=== PATIENT | male | born 1985 | race Caucasian/White ===

== ENCOUNTER 2022-04-29 12:41 | Observation (INO) | payer OTHER, SELFPAY ==
[2022-04-29] VITALS (18 sets, daily range): BP systolic 126–156; BP diastolic 65–95; PULSE 60–81; RESP 13–18; TEMP 36.4–37.2; O2SAT 93–100; BMI 27.0
--- NOTE | 2022-04-29 13:08 | ECG_ITS ---
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 Measurements Intervals [place] Rate: 65 P: 6 MD: 156 QRS: -17 QRSD: 103 T: -3 QT: 359 QTc: 374 Interpretive Statements SINUS RHYTHM POSSIBLE RIGHT VENTRICULAR CONDUCTION DELAY [RSR (QR) IN V1/V2] VOLTAGE CRITERIA FOR LVH [MEETS CRITERIA IN ONE OF: R(aVL), S(V1), R(V5), R(V5/V6)+S(V1)] No previous ECG available for comparison Electronically Signed On 04-29-2022 17:28:36 CDT by Tyshawn Reyes M.D. [email or web address].[employer]/store/OM/[id number]
--- NOTE | 2022-04-29 13:09 | ED_ITS ---
Documented by User: KRISTEN Murdock 04/29/22 16:43 HPI - Abdominal Pain General: Chief Complaint: Abdominal Pain Stated Complaint: abdomal pain and kidney area Time Seen by Provider: 04/29/22 12:50 History of Present Illness: Patient is a 37-year-old male comes to the ED with abdominal pain. Abdominal pain started approximately a week ago. It was more m ild pain at that time. 2 days ago patient says his pain got a lot worse. Abdominal pain is located in the periumbilical and epigastric region and it radiates to his back. He rates pain currently a 9 out of 10 and its constant. Pain does not worsen after eating. Denies any improving or worsening factors. He is able to keep food and fluids down but endorses a decreased appetite. Deniesfever, chills, nausea/vomiting, bladder or bowel symptoms. Associated Symptoms: Denies chills, constipation, diarrhea, dysuria, fever(s), hematochezia, hematuria, nausea and vomiting Review of Systems Const: Denies: fever(s), chills or fatigue Eyes: Denies: change in vision or eye discomfort ENMT: Denies: throat pain, odynophagia, nasal discharge or nasal congestion Card: Denies: chest pain, palpitations, edema, swelling of feet/ankles, dyspnea on exertion or orthopnea Resp: Denies: dyspnea, productive cough or non-productive cough GI: Reports: abdominal pain; Denies: nausea, vomiting, diarrhea, constipation or hematochezia : Denies: flank pain, difficulty urinating, dysuria or hematuria Musc: Denies: neck pain, back pain or extremity swelling Skin/Breast: Denies: rash or new lesions Neuro: Denies: headache(s), numbness in extremities or weakness in extremities PFS ED PFSH: Medical History No pertinent family history Surgical History No pertinent past surgical history Physical Exam Const: COMMON NORMALS: patient oriented x3 and alert GENERAL APPEARANCE: cooperative HENMT: COMMON NORMALS: normocephalic HEAD & SCALP: normocephalic MOUTH: Normal oral and palatal mucosa present THROAT: posterior oropharynx normal and uvula midline Neck/C-Spine: COMMON NORMALS: supple GENERAL: Yes normal visual inspection Resp: COMMON NORMALS: normal respiratory effort, No retractions, No use of accessory muscles and clear to auscultation bilaterally AUSCULTATION: clear to auscultation bilaterally Cardio: COMMON NORMALS: regular rate, regular rhythm, S1 normal heart sound present, S2 normal heart sound present, No gallops present (Cardio), No clicks present (Cardio), No murmurs present (Cardio) and Peripheral pulses 2+ throughout RATE: regular rate RHYTHM: regular rhythm HEART SOUNDS: S1 normal heart sound present and S2 normal heart sound present PERIPHERAL PULSES: Peripheral pulses 2+ throughout GI: COMMON NORMALS: Normal to inspection, nondistended, normoactive bowel sounds present, Soft to palpation and no masses PALPATION: Yes Soft to palpation and Yes Tenderness to palpation present (GI) (Epigastric and periumbilical region tenderness) : COMMON NORMALS: Yes no CVA tenderness BLADDER/KIDNEY EXAM: Yes no CVA tenderness Back/Pelvis: COMMON NORMALS: no CVA tenderness Extremity: COMMON NORMALS: normal to inspection Neuro: COMMON NORMALS: patient oriented x3 SENSORIUM/ORIENTATION: Yes alert GAIT: Yes Normal gait present Skin: GENERAL SKIN EXAM: dry skin Course Consultations: Consultation #1: I contacted Dr. Jacobs and told him about patient case and CT findings of acute appendicitis. He he accepts admission of patient and will be taking them to surgery today. Time: 16:27 Vital Signs: Vital signs: Vital Signs Temperature 98.0 F 04/29/22 13:01 Pulse Rate 71 04/29/22 16:42 Respiratory Rate 16 04/29/22 16:42 Blood Pressure 151/95 04/29/22 16:42 Pulse Oximetry 98 04/29/22 16:42 MDM - Abdominal Pain Medical Decision Making Patient is a 37-year-old male comes to the ED with abdominal pain. Symptoms started approximately 2 days ago and continued to get worse. Vitals are stable. Patient has tenderness of the periumbilical and epigastric region of abdomen. Rest of exam is benign. White blood cell count of 16.[address] of abdomen pelvis showed acute appendicitis with an appendix measuring up to 15 mm in diameter. I contacted Dr. Jacobs and told about patient case and he accepts admission of patient and will be taking him to surgery later today. Patient was started on IV Zosyn here in the ED. Patient understood and agreed with plan. Lab Data I reviewed the patient's lab results. : 04/29/22 13:00 04/29/22 13:00 Labs/Radiology: Radiology Impressions Abdomen/Pelvis CT 04/29/22 14:08 IMPRESSION: 1. Acute appendicitis with numerous phleboliths and marked distention. Appendix measures up to 15 mm in diameter. 2. Appendix extends superiorly and extends between the inferior RIGHT lobe of the liver and the RIGHT kidney. 3. Small amount of free fluid in the pelvis. Laboratory Results WBC 16.7 10^3/uL (4.0-10.0) H 04/29/22 13:00 RBC 5.10 10^6/uL (4.1-5.3) 04/29/22 13:00 Hgb 16.5 g/dL (11.7-16.6) 04/29/22 13:00 Hct 46.4 % (42.0-52.0) 04/29/22 13:00 MCV 91.0 fl (80-94) 04/29/22 13:00 MCH 32.4 pg (28.0-34.0) 04/29/22 13:00 MCHC 35.6 g/dL (30.0-36.0) 04/29/22 13:00 RDW 12.6 % (12.1-15.1) 04/29/22 13:00 Plt Count 235 10^3/cmm (130-400) 04/29/22 13:00 MPV 10.1 fL (7.4-10.4) 04/29/22 13:00 Neut % (Auto) 81.3 % 04/29/22 13:00 Lymph % (Auto) 11.6 % 04/29/22 13:00 [place] % (Auto) 5.8 % 04/29/22 13:00 Eos % (Auto) 0.3 % 04/29/22 13:00 Baso % (Auto) 0.4 % 04/29/22 13:00 Neut # (Auto) 13.56 10^3/uL (1.8-7.7) H 04/29/22 13:00 Lymph # (Auto) 1.9 10^3/uL (0.8-4.8) 04/29/22 13:00 [place] # (Auto) 1.0 10^3/uL (0.2-0.9) H 04/29/22 13:00 Eos # (Auto) 0.1 10^3/uL (0.0-0.8) 04/29/22 13:00 Baso # (Auto) 0.1 10^3/uL (0.0-0.1) 04/29/22 13:00 Nucleated RBC % (auto) 0 % 04/29/22 13:00 Nucleated RBCs # 0.0 /100WBC 04/29/22 13:00 Sodium 140 mmol/L (136-145) 04/29/22 13:00 Potassium 3.9 mmol/L (3.5-5.1) 04/29/22 13:00 Chloride 102 mmol/L (98-107) 04/29/22 13:00 Carbon Dioxide 27 mmol/L (22-29) 04/29/22 13:00 Anion Gap 14.9 (5-19) 04/29/22 13:00 BUN 10 mg/dL (6-20) 04/29/22 13:00 Creatinine 0.9 mg/dL (0.7-1.2) 04/29/22 13:00 GFR Calculation 95.0 mL/min (90-130) 04/29/22 13:00 Glucose 108 mg/dL (65-115) 04/29/22 13:00 Calculated Osmolality 290 mOsm/kg (285-295) 04/29/22 13:00 Calcium 9.3 mg/dL (8.5-10.5) 04/29/22 13:00 Total Bilirubin 0.4 mg/dL (0.15-1.2) 04/29/22 13:00 AST 17 U/L (0-40) 04/29/22 13:00 ALT 17 U/L (0-41) 04/29/22 13:00 Alkaline Phosphatase 82 IU/L (40-130) 04/29/22 13:00 Troponin T Baseline 6 ng/L (0-15) 04/29/22 Unknown Total Protein 7.2 g/dL (6.6-8.7) 04/29/22 13:00 Albumin 4.4 g/dL (3.5-5.2) 04/29/22 13:00 Globulin 2.8 g/dL (1.3-4.6) 04/29/22 13:00 Lipase 16 U/L (13-60) 04/29/22 13:00 Urine Color Yellow (Yellow) 04/29/22 14:16 Urine Appearance Clear (CLEAR) 04/29/22 14:16 Urine pH 8 (5-7) H 04/29/22 14:16 Ur Specific [place] 1.010 (1.005-1.030) 04/29/22 14:16 Urine Protein Neg (Negative) 04/29/22 14:16 Urine Glucose (UA) Norm (Normal) 04/29/22 14:16 Urine Ketones 1+ (Negative) H 04/29/22 14:16 Urine Blood Neg (Negative) 04/29/22 14:16 Urine Nitrate Negative (Negative) 04/29/22 14:16 Urine Bilirubin 1+ (Negative) H 04/29/22 14:16 Prot Sulfosalicylic Acd Negative (Negative) 04/29/22 14:16 Urine Urobilinogen Norm mg/dL (Negative) 04/29/22 14:16 Ur Leukocyte Esterase Negative (Negative) 04/29/22 14:16 EKG Data EKG 1: EKG interpretation date: 04/29/22 Interpretation: Sinus rhythm, no ST segment elevation or depression seen, 65 bpm Discharge Plan Discharge Patient Disposition: Admitted As Inpatient Clinical Impression: Acute appendicitis Qualifiers: Acute appendicitis type: with localized peritonitis Appendicitis gangrene presence: without gangrene Appendicitis perforation presence: without perforation Appendicitis abscess presence: without abscess Qualified Code(s): K35.30 - Acute appendicitis with localized peritonitis, without perforation or gangrene Condition: Stable Sign Out Sign Out Data: Patient Sign Out occurred on 04/29/22 at 16:52. Patient's care was discussed, and care was transferred from to Jose Antonio Hewitt DO. 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 Documented by User: Jose Antonio Hewitt DO 04/29/22 17:01 HPI - Abdominal Pain General: Chief Complaint: Abdominal Pain Stated Complaint: abdomal pain and kidney area Time Seen by Provider: 04/29/22 12:50 [facility] ED PFSH: Medical History No pertinent family history Surgical History No pertinent past surgical history Course Vital Signs: Vital signs: Vital Signs Temperature 98.0 F 04/29/22 13:01 Pulse Rate 71 04/29/22 16:42 Respiratory Rate 16 04/29/22 16:42 Blood Pressure 151/95 04/29/22 16:42 Pulse Oximetry 98 04/29/22 16:42 MDM - Abdominal Pain Medical Decision Making Patient is a 37-year-old male comes to the ED with abdominal pain. Symptoms started approximately 2 days ago and continued to get worse. Vitals are stable. Patient has tenderness of the periumbilical and epigastric region of abdomen. Rest of exam is benign. White blood cell count of 16.[address] of abdomen pelvis showed acute appendicitis with an appendix measuring up to 15 mm in diameter. I contacted Dr. Jacobs and told about patient case and he accepts admission of patient and will be taking him to surgery later today. Patient was started on IV Zosyn here in the ED. Patient understood and agreed with plan. Patient seen and examined by myself. Reviewed labs and imaging and Sanjeev Avila's charting and agree with all the above exam I have the same findings he does. Dr. Jorge is consulted for urgent appendectomy. Lab Data : 04/29/22 13:00 04/29/22 13:00 Labs/Radiology: Radiology Impressions Abdomen/Pelvis CT 04/29/22 14:08 IMPRESSION: 1. Acute appendicitis with numerous phleboliths and marked distention. Appendix measures up to 15 mm in diameter. 2. Appendix extends superiorly and extends between the inferior RIGHT lobe of the liver and the RIGHT kidney. 3. Small amount of free fluid in the pelvis. Laboratory Results WBC 16.7 10^3/uL (4.0-10.0) H 04/29/22 13:00 RBC 5.10 10^6/uL (4.1-5.3) 04/29/22 13:00 Hgb 16.5 g/dL (11.7-16.6) 04/29/22 13:00 Hct 46.4 % (42.0-52.0) 04/29/22 13:00 MCV 91.0 fl (80-94) 04/29/22 13:00 MCH 32.4 pg (28.0-34.0) 04/29/22 13:00 MCHC 35.6 g/dL (30.0-36.0) 04/29/22 13:00 RDW 12.6 % (12.1-15.1) 04/29/22 13:00 Plt Count 235 10^3/cmm (130-400) 04/29/22 13:00 MPV 10.1 fL (7.4-10.4) 04/29/22 13:00 Neut % (Auto) 81.3 % 04/29/22 13:00 Lymph % (Auto) 11.6 % 04/29/22 13:00 [place] % (Auto) 5.8 % 04/29/22 13:00 Eos % (Auto) 0.3 % 04/29/22 13:00 Baso % (Auto) 0.4 % 04/29/22 13:00 Neut # (Auto) 13.56 10^3/uL (1.8-7.7) H 04/29/22 13:00 Lymph # (Auto) 1.9 10^3/uL (0.8-4.8) 04/29/22 13:00 [place] # (Auto) 1.0 10^3/uL (0.2-0.9) H 04/29/22 13:00 Eos # (Auto) 0.1 10^3/uL (0.0-0.8) 04/29/22 13:00 Baso # (Auto) 0.1 10^3/uL (0.0-0.1) 04/29/22 13:00 Nucleated RBC % (auto) 0 % 04/29/22 13:00 Nucleated RBCs # 0.0 /100WBC 04/29/22 13:00 Sodium 140 mmol/L (136-145) 04/29/22 13:00 Potassium 3.9 mmol/L (3.5-5.1) 04/29/22 13:00 Chloride 102 mmol/L (98-107) 04/29/22 13:00 Carbon Dioxide 27 mmol/L (22-29) 04/29/22 13:00 Anion Gap 14.9 (5-19) 04/29/22 13:00 BUN 10 mg/dL (6-20) 04/29/22 13:00 Creatinine 0.9 mg/dL (0.7-1.2) 04/29/22 13:00 GFR Calculation 95.0 mL/min (90-130) 04/29/22 13:00 Glucose 108 mg/dL (65-115) 04/29/22 13:00 Calculated Osmolality 290 mOsm/kg (285-295) 04/29/22 13:00 Calcium 9.3 mg/dL (8.5-10.5) 04/29/22 13:00 Total Bilirubin 0.4 mg/dL (0.15-1.2) 04/29/22 13:00 AST 17 U/L (0-40) 04/29/22 13:00 ALT 17 U/L (0-41) 04/29/22 13:00 Alkaline Phosphatase 82 IU/L (40-130) 04/29/22 13:00 Troponin T Baseline 6 ng/L (0-15) 04/29/22 Unknown Total Protein 7.2 g/dL (6.6-8.7) 04/29/22 13:00 Albumin 4.4 g/dL (3.5-5.2) 04/29/22 13:00 Globulin 2.8 g/dL (1.3-4.6) 04/29/22 13:00 Lipase 16 U/L (13-60) 04/29/22 13:00 Urine Color Yellow (Yellow) 04/29/22 14:16 Urine Appearance Clear (CLEAR) 04/29/22 14:16 Urine pH 8 (5-7) H 04/29/22 14:16 Ur Specific [place] 1.010 (1.005-1.030) 04/29/22 14:16 Urine Protein Neg (Negative) 04/29/22 14:16 Urine Glucose (UA) Norm (Normal) 04/29/22 14:16 Urine Ketones 1+ (Negative) H 04/29/22 14:16 Urine Blood Neg (Negative) 04/29/22 14:16 Urine Nitrate Negative (Negative) 04/29/22 14:16 Urine Bilirubin 1+ (Negative) H 04/29/22 14:16 Prot Sulfosalicylic Acd Negative (Negative) 04/29/22 14:16 Urine Urobilinogen Norm mg/dL (Negative) 04/29/22 14:16 Ur Leukocyte Esterase Negative (Negative) 04/29/22 14:16 Discharge Plan Discharge Patient Disposition: Admitted As Inpatient Clinical Impression: Acute appendicitis Qualifiers: Acute appendicitis type: with localized peritonitis Appendicitis gangrene presence: without gangrene Appendicitis perforation presence: without perforation Appendicitis abscess presence: without abscess Qualified Code(s): K35.30 - Acute appendicitis with localized peritonitis, without perforation or gangrene Condition: Stable Sign Out Sign Out Data: Patient Sign Out occurred on 04/29/22 at 16:52. Patient's care was discussed, and care was transferred from to Jose Antonio Hewitt DO. 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
[2022-04-29] MEDS: ondansetron 2 mg/ML SDV 2 mL 4 MG IVP (13:14)
[2022-04-29] MEDS: morphine 4 mg/mL SDV 1 mL IVP ×2 (13:15→14:10)
[2022-04-29] MEDS: sodium chloride 0.9% 1,000 ML 999 ML IV (13:15)
[2022-04-29 14:01] LABS: Troponin(5th) Baseline 6 ng/L (0-15)
--- NOTE | 2022-04-29 14:08 | CT_ITS ---
WS: [id number] CT ABDOMEN AND PELVIS WITH CONTRAST HISTORY: Periumbilical abdominal pain TECHNIQUE: Imaging performed of the abdomen and pelvis with IV contrast. Single phase imaging of the abdomen. Coronal and sagittal reformats are submitted. All CT scans at [facility] use at [address] one of these dose optimization techniques: automated exposure control; mA and/or kV adjustment per patient size (includes targeted exams where dose is matched to clinical indication); or iterative re construction. IV CONTRAST: Omnipaque 350; 95 mL IV. Oral contrast: No DLP: 1100.33 mGy.cm COMPARISON: None available. Lower thorax: Lung bases are clear. Heart is normal size. No hiatal hernia. Liver/biliary system: Normal size with no intrahepatic dilatation. Gallbladder: Normal. No gallstones or wall thickening. No pericholecystic fluid. Pancreas: Normal size pancreas and pancreatic duct. No adjacent inflammation. Spleen: Normal size spleen. No mass or infarct. Adrenal glands: Normal. Right kidney: Normal. Left kidney: Normal. Aorta: Normal. Lymphadenopathy: None. Free fluid: Small amount of free fluid in the pelvis. GI tract: Dilated blind-ending loop in the RIGHT lower quadrant contains calcifications. This is cons istent with a dilated fluid-filled appendix with adjacent moderate periappendiceal stranding. Appendi x measures 15 mm diameter. Appendicoliths are present within the lumen. These appendicoliths measure about 6 mm. The appendix is superiorly positioned and extends between the inferior most aspect RIGHT lobe of the liver and the kidney. Mild secondary inflammation involving the ascending colon near the hepatic flexure. Abdominal wall: Fat containing umbilical hernia. Pelvis: Small amount of free fluid in the pelvis. Urinary bladder is well distended. Bones: Unremarkable. CT/CT abdomen pelvis w con* [id number] IMPRESSION: 1. Acute appendicitis with numerous phleboliths and marked distention. Appendi x measures up to 15 mm in diameter. 2. Appendix extends superiorly and extends between the inferior RIGHT lobe of the liver and the RIGHT kidney. 3. Small amount of free fluid in the pelvis.
[2022-04-29 14:33] LABS: Add Urine Microscopic? NO; Charge for UA Resulting for Rev
[2022-04-29 14:37] LABS: Bilirubin Urine 1+ (Negative); Blood Urine Neg (Negative); Glucose Urine UA Norm (Normal); Ketones Urine 1+ (Negative); Leukocyte Esterase Urine Negative (Negative); Nitrate Urine Negative (Negative); Protein Urine Neg (Negative); Sulfosalicylic Acid Urine Negative (Negative); Urine Appearance Clear (CLEAR); Urine Color Yellow (Yellow); Urobilinogen Urine Norm (Negative); pH Urine 8 (5-7)
[2022-04-29] MEDS: iohexol 350 mg/mL 100 mL Btl IV (15:08)
--- NOTE | 2022-04-29 15:08 | ECG_ITS ---
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 Measurements Intervals [place] Rate: 72 P: 71 AR: 168 QRS: 78 QRSD: 100 T: 64 QT: 327 QTc: 360 Interpretive Statements SINUS RHYTHM Compared to ECG 04/29/2022 13:27:53 Left ventricular hypertrophy no longer present Electronically Signed On 04-30-2022 23:44:46 CDT by Esdras Farfan M.D. [email or web address] medical groupGame [facility] hospitalUplike/store/OM/[id number]/[id number]
[2022-04-29 15:21] LABS: Basophils # 0.1 10^3/uL (0.0-0.1); Basophils % 0.4 %; Eosinophils # 0.1 10^3/uL (0.0-0.8); Eosinophils % 0.3 %; Hematocrit 46.4 % (42.0-52.0); Hemoglobin 16.5 g/dL (11.7-16.6); Lymphocytes # 1.9 10^3/uL (0.8-4.8); Lymphocytes % 11.6 %; Mean Corpuscular HGB Conc 35.6 g/dL (30.0-36.0); Mean Corpuscular Hemoglobin 32.4 pg (28.0-34.0); Mean Platelet Volume 10.1 fL (7.4-10.4); Monocytes % 5.8 %; Neutrophils # 13.56 10^3/uL (1.8-7.7); Neutrophils % 81.3 %; Nucleated Red Blood Cells % 0 %; Platelet Count 235 10^3/cmm (130-400); Red Cell Distribution Width 12.6 % (12.1-15.1); White Blood Count 16.7 10^3/uL (4.0-10.0)
[2022-04-29 15:30] LABS: Alanine Aminotransferase 17 U/L (0-41); Albumin Level 4.4 g/dL (3.5-5.2); Alkaline Phosphatase 82 IU/L (40-130); Anion Gap 14.9 (5-19); Aspartate Amino Transferase 17 U/L (0-40); Blood Urea Nitrogen 10 mg/dL (6-20); Calcium 9.3 mg/dL (8.5-10.5); Carbon Dioxide 27 mmol/L (22-29); Chloride 102 mmol/L (98-107); Globulin 2.8 g/dL (1.3-4.6); Glucose 108 mg/dL (65-115); Lipase 16 U/L (13-60); Osmolality Calculated 290 mOsm/kg (285-295); Potassium 3.9 mmol/L (3.5-5.1); Sodium 140 mmol/L (136-145); Total Bilirubin 0.4 mg/dL (0.15-1.2); Total Protein 7.2 g/dL (6.6-8.7)
[2022-04-29] MEDS: HYDROmorphone 1 mg/mL INJ 1 mL IVP ×2 (15:41→16:38)
[2022-04-29] MEDS: piperacillin-tazobactam 3.375 GM in sodium chloride 0.9% (plus) 50 ML IV (16:41)
--- NOTE | 2022-04-29 17:28 | P.HP_ITS ---
Providers/Chief Complaint Admitting Physician: Kevin Jacobs MD Primary Care Provider: Devante Miramontes Chief Complaint: abdomal pain in kidney area History of Present Illness Mr. Mark Hobbs is a pleasant 37 year old male otherwise healthy presents to the ED with abdominal pain. Reports that the pain started about a week ago. Over the last couple of days the pain got worse mostly located in the periumbilical and epigastric region and radiates to the back. Nothing seems to make the pain better or worse. No evidence of other constitutional symptoms. Patient reports that the pain has been like a horseshoe and did experience some constipation today. He denies any history of similar pain in the past and he did develop some chills today Further work-up in the ED was done that showed leukocytosis of 16.7 CT of the abdomen pelvis was done and showed; 1.? Acute appendicitis with numerous phleboliths and marked distention. Appendix measures up to 15 mm in diameter. 2.? Appendix extends superiorly and extends between the inferior RIGHT lobe of the liver and the RIGHT kidney. 3.? Small amount of free fluid in the pelvis. ? General surgery was consulted for further evaluation and management. Review of Systems General: Reports: 10 or more systems reviewed and unremarkable except in HPI and below Medications/Allergies Home Medications Medication Instructions Recorded Confirmed Last Taken Type esomeprazole magnesium 40 mg 40 mg PO DAILY #30 cap 04/28/22 04/29/22 04/29/22 07:30 Rx capsule,delayed release (Nexium) Allergies Allergy/AdvReac Type Severity Reaction Status Date / Time No Known Allergies Allergy Verified 04/29/22 17:30 PFSH Acute PFSH: Medical History No pertinent family history Surgical History No pertinent past surgical history Vitals/I&O/Wt Last Vital Signs Temp 98.0 F 04/29/22 13:01 Pulse 71 04/29/22 16:42 Resp 16 04/29/22 16:42 BP 151/95 04/29/22 16:42 Pulse Ox 98 04/29/22 16:42 Weight last 48 hrs Weight 205 lb Physical Exam Const: COMMON NORMALS: no acute distress and patient oriented x3 GENERAL APPEARANCE: cooperative ORIENTATION/CONSCIOUSNESS: Yes awake, Yes oriented to person, Yes oriented to place and Yes oriented to time HENMT: COMMON NORMALS: normocephalic HEAD & SCALP: normocephalic Eye: COMMON NORMALS: Equal, round and reactive pupils present and no scleral icterus PUPIL: Yes Equal, round and reactive pupils present Lymph: LYMPHATIC: no lymphadenopathy noted Chest: COMMONS NORMALS: normal inspection of the chest Resp: COMMON NORMALS: normal respiratory effort and clear to auscultation bilaterally AUSCULTATION: clear to auscultation bilaterally Cardio: COMMON NORMALS: S1 normal heart sound present and S2 normal heart sound present; negative for No murmurs present (Cardio) HEART SOUNDS: S1 normal heart sound present and S2 normal heart sound present GI: COMMON NORMALS: Soft to palpation; negative for No hepatosplenomegaly present INSPECTION: Yes normal to inspection PALPATION: Yes Soft to palpation, No Firmness to palpation present (GI), Yes Tenderness to palpation present (GI) (Right lumbar area maximal tenderness and guarding), No Guarding due to palpation present (GI), No Rigid due to palpation and No No hepatosplenomegaly present Neuro: COMMON NORMALS: patient oriented x3 SENSORIUM/ORIENTATION: Yes oriented to person, Yes oriented to place and Yes oriented to time Psych: COMMON NORMALS: mental status grossly normal Skin: COMMON NORMALS: no rashes or lesions noted GENERAL SKIN EXAM: no rashes or lesions noted Data : 04/29/22 13:00 04/29/22 13:00 A&P Assessment and plan (1) Acute appendicitis: After thorough history physical examination and reviewing the chart and images with my personal interpretion showing that the appendix is a subhepatic in position. I counseled the patient for laparoscopic appendectomy possible open. Indications, risks, benefits and alternatives were all discussed with the patient and did agree to proceed. Rationale was carefully and clearly discussed with the patient.Appropriate inf ormed consent have been reviewed and signed Status: Acute Qualifiers: Acute appendicitis type: with localized peritonitis Appendicitis abscess presence: without abscess Appendicitis gangrene presence: without gangrene Appendicitis perforation presence: without perforation Qualified Code(s): K35.30 - Acute appendicitis with localized peritonitis, without perforation or gangrene Attestations Medical Necessity Statement*: Observation for perioperative care Coding Level of Care Code Acute [employer] Attendant for [facility] Fw Diagnoses Acute appendicitis K35.30 Acute appendicitis type: with localized peritonitis Appendicitis abscess presence: without abscess Appendicitis gangrene presence: without gangrene Appendicitis perforation presence: without perforation
--- NOTE | 2022-04-29 18:22 | ANES.PREANE2 ---
Pre-Anesthetic Assessment Height/Weight: Height 1.85 m Weight 92.986 kg Temp Pulse Resp BP Pulse Ox 99.0 F 73 16 141/85 95 04/29/22 18:19 04/29/22 18:19 04/29/22 18:19 04/29/22 18:19 04/29/22 18:19 Preop Diagnosis: Acute appendicitis Operation Date: 04/29/22 18:00 Proposed Procedures p Laparoscopic Appendectomy(Not Applicable) - Kevin Jacobs MD Familial anesthetic complications: none Was Beta Shanda taken within 24 hours: N/A Was Clonidine taken within 24 hours: N/A Social Alcohol (daily beer) and Tobacco Exam alert, oriented x 3 and regular rate & rhythm Airway Submandibular: within normal limits Cervical ROM: within normal limits Mallampati: Class II Dentition: full Pulmonary Chronic Obstructive Pulmonary Disease GI Gastroesophageal Reflux Disease Anesthetic Plan ASA status: 2E Anesthesia: General (RSI) Medications/Allergies Home Medications Medication Instructions Recorded Confirmed Last Taken Type esomeprazole magnesium 40 mg 40 mg PO DAILY #30 cap 04/28/22 04/29/22 04/29/22 07:30 Rx capsule,delayed release (Nexium) Allergies Allergy/AdvReac Type Severity Reaction Status Date / Time No Known Allergies Allergy Verified 04/29/22 17:30 [facility] Anesthesia Medical History No pertinent family history Surgical History No pertinent past surgical history Data Anesthesia : 04/29/22 13:00 04/29/22 13:00 Short CBC 04/29/22 Range/Units 13:00 WBC 16.7 H (4.0-10.0) 10^3/uL Hgb 16.5 (11.7-16.6) g/dL Hct 46.4 (42.0-52.0) % MCV 91.0 (80-94) fl Plt Count 235 (130-400) 10^3/cmm Neut % (Auto) 81.3 % Neut # (Auto) 13.56 H (1.8-7.7) 10^3/uL BMP 04/29/22 13:00 Sodium 140 Potassium 3.9 Chloride 102 Carbon Dioxide 27 BUN 10 Creatinine 0.9 Glucose 108 Calcium 9.3 Cardiac Enzymes 04/29/22 Range/Units Unknown Troponin T Baseline 6 (0-15) ng/L Liver Function 04/29/22 Range/Units 13:00 Total Bilirubin 0.4 (0.15-1.2) mg/dL AST 17 (0-40) U/L ALT 17 (0-41) U/L Alkaline Phosphatase 82 (40-130) IU/L Albumin 4.4 (3.5-5.2) g/dL Urine 04/29/22 Range/Units 14:16 Urine Color Yellow (Yellow) Urine Appearance Clear (CLEAR) Urine pH 8 H (5-7) Ur Specific [place] 1.010 (1.005-1.030) Urine Protein Neg (Negative) Urine Glucose (UA) Norm (Normal) Urine Ketones 1+ H (Negative) Urine Nitrate Negative (Negative) Urine Bilirubin 1+ H (Negative) Ur Leukocyte Esterase Negative (Negative) Cardiac Studies: No Data to Display
[2022-04-29] MEDS: sodium chloride 0.9% 1,000 ML 30 ML IV (18:31)
[2022-04-29] MEDS: fentaNYL 50 mcg/mL INJ 2mL 100 MCG IVP (18:39)
[2022-04-29 18:56] LABS: Troponin 5 2HR Delta 0 ABS# (0-10)
[2022-04-29] MEDS: acetaminophen 1,000 MG/100 ML PIGGYBACK 400 MG IV (19:05)
[2022-04-29] MEDS: lidocaine 2% INJ 20 mL INJECTION (20:07)
--- NOTE | 2022-04-29 20:51 | PM.OP ---
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 prep and drape of the abdomen was done under the usual sterile technique. Started by longitudinal skin incision supraumbilical using a Hernandez trocar technique safe entry to the abdominal cavity was achieved verified by using 10 mm zero degree laparoscopy, switched to a 30? scope under direct visualization a suprapubic 5 mm trocar was inserted followed by another 5 mm trocar inserted in the left lower quadrant, I was able to position the patient in a reverseT Garcia and left side down, dissection of the subhepatic prececal acutely inflamed appendix there was some adhesions towards the lateral wall and the underlying Gerota's fascia, surrounded by reactive fluid due to the inflammation. Dissection was carried on meticulously using LigaSure device to control the mesoappendix.It was noticed that the appendix was being inflamed and distended and during dissection there was inadvertent liquidy stool extruding from the appendix but with minimal contamination. Adhesions were then taken down by sharp and blunt dissection, attention was deviated to the healthy base of the appendix where I had to switch the camera to 5 mm 30? scope got introduced through the left lower quadrant and through the Hernandez trocar under direct visualization a GI stapler 45 mm blue load x2 was applied at the healthy part of the base of the appendix And part of the cecum, and, the appendix was then retrieved in an Endo Catch bag, final survey was done of the abdomen and pelvis , irrigation with warm saline, and suction was obtained. Multiple 5 mm clips were applied onto the mesoappendix as well as the appendectomy staple line. Final look laparoscopy was done showing no other abnormalities or injuries, all trocars were taken out under direct visualization after the supraumblical trocar site was closed by #1 PDS sutures under direct vision using fascial closure device ,followed by skin closure using skin joyce of all trocar site incisions. infiltration of local lidocaine 2% was done to all incision sites.Dry dressing was applied. Count was completed at the end of the procedure for [place],sponges and instruments Patient tolerated the procedure well and was transferred to the recovery area after extubation. I was present for the whole entire procedure
[2022-04-29] MEDS: sodium chloride 0.9% 1,000 ML 100 ML IV (21:47)
[2022-04-29] MEDS: HYDROcodone-acetaminophen 5-325 mg Tablet 1 TAB PO (22:08)
[2022-04-29] MEDS: famotidine 20 mg/2 mL INJ IVP (22:20)
[2022-04-30] VITALS (10 sets, daily range): BP systolic 104–135; BP diastolic 63–78; PULSE 71–97; RESP 13–20; TEMP 36.5–37.3; O2SAT 92–97
[2022-04-30] MEDS: piperacillin-tazobactam 3.375 GM in sodium chloride 0.9% (plus) 50 ML IV ×3 (01:25→17:29)
[2022-04-30] MEDS: morphine 4 mg/mL SDV 1 mL 2 MG IVP ×2 (02:55→14:49)
[2022-04-30 03:49] LABS: Basophils % 0.2 %; Hematocrit 41.6 % (42.0-52.0); Hemoglobin 14.5 g/dL (11.7-16.6); Lymphocytes # 0.9 10^3/uL (0.8-4.8); Lymphocytes % 5.5 %; Mean Corpuscular HGB Conc 34.9 g/dL (30.0-36.0); Mean Corpuscular Hemoglobin 31.7 pg (28.0-34.0); Mean Platelet Volume 9.4 fL (7.4-10.4); Monocytes # 0.9 10^3/uL (0.2-0.9); Monocytes % 5.7 %; Neutrophils # 13.85 10^3/uL (1.8-7.7); Neutrophils % 88.2 %; Nucleated Red Blood Cells % 0 %; Platelet Count 178 10^3/cmm (130-400); Red Blood Count 4.57 10^6/uL (4.1-5.3); Red Cell Distribution Width 12.6 % (12.1-15.1); White Blood Count 15.7 10^3/uL (4.0-10.0)
[2022-04-30 04:12] LABS: Anion Gap 13.2 (5-19); Blood Urea Nitrogen 8 mg/dL (6-20); Calcium 8.8 mg/dL (8.5-10.5); Carbon Dioxide 26 mmol/L (22-29); Chloride 100 mmol/L (98-107); Glucose 146 mg/dL (65-115); Osmolality Calculated 281 mOsm/kg (285-295); Potassium 4.2 mmol/L (3.5-5.1); Sodium 135 mmol/L (136-145)
[2022-04-30] MEDS: HYDROcodone-acetaminophen 5-325 mg Tablet 1 TAB PO ×3 (05:11→20:06)
[2022-04-30] MEDS: sodium chloride 0.9% 1,000 ML 100 ML IV ×2 (07:35→19:48)
--- NOTE | 2022-04-30 09:03 | ANE.PACU2 ---
Inpatient post-anesthesia follow up: Airway intact: Yes Vital signs: Temperature 97.7 F Pulse Rate 82 Respiratory Rate 16 Blood Pressure 110/74 Pulse Oximetry 92 Oxygen Delivery Me thod Room Air Oxygen Flow Rate 8 Fraction of Inspir ed Oxygen Hydration adequate: Yes Nausea and vomiting: No Pain level: 3 Mental status: Baseline
[2022-04-30] MEDS: famotidine 20 mg/2 mL INJ IVP ×2 (09:06→20:54)
--- NOTE | 2022-04-30 11:13 | P.PN_ITS ---
Subjective Subjective: Patient overall feels better, tolerating p.o. intake and passed little gas. Trending down of WBC count 15.7. Adequate urine output Medications: Reviewed: Yes Vitals/I&O/Wt Last Vital Signs Temp 97.7 F 04/30/22 07:49 Pulse 82 04/30/22 08:00 Resp 16 04/30/22 08:00 BP 110/74 04/30/22 08:00 Pulse Ox 92 04/30/22 08:00 04/29/22 04/30/22 04/30/22 22:59 06:59 14:59 Intake Total 1150 / 1150 980 / 2130 980 / 980 Output Total 1999 1675 / 1675 Balance 1130 / 1130 -1020 / 110 -695 / -695 Weight last 48 hrs Weight 205 lb Weight 205 lb Physical Exam Narrative: Patient is conscious alert oriented X3 No apparent distress BMI 27 Head and neck examination PERRLA no masses no cervical lymphadenopathy no jaundice Abdomen nontender except at the incision site nondistended soft no organomegaly guarding or rigidity/no signs of peritonitis Extremities no cyanosis no clubbing no edema Data : 04/30/22 03:13 04/30/22 03:13 A&P Assessment and plan (1) Acute appendicitis: Assessment 37 years old gent s/post laparoscopic appendectomy 04/29/2022 Plan Advance to full liquid diet Continue Zosyn IV antibiotic Encourage ambulation Assurance and education All questions have been answered and all concerns have been addressed to patient's satisfaction. 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
--- NOTE | 2022-04-30 17:49 | PC.NURSE ---
Dr. Jacobs stated patients lovenox can be given in the arm due to appy surgery.
[2022-04-30] MEDS: psyllium powder Pkt 1 PACKET PO (20:06)
[2022-05-01] MEDS: piperacillin-tazobactam 3.375 GM in sodium chloride 0.9% (plus) 50 ML IV ×3 (01:10→16:54)
[2022-05-01] MEDS: HYDROcodone-acetaminophen 5-325 mg Tablet 1 TAB PO ×2 (02:02→09:04)
[2022-05-01 02:55] LABS: Basophils % 0.3 %; Eosinophils % 0.3 %; Hemoglobin 13.9 g/dL (11.7-16.6); Lymphocytes # 1.6 10^3/uL (0.8-4.8); Lymphocytes % 13.5 %; Mean Corpuscular HGB Conc 35.6 g/dL (30.0-36.0); Mean Corpuscular Hemoglobin 32.3 pg (28.0-34.0); Mean Corpuscular Volume 90.5 fl (80-94); Mean Platelet Volume 9.5 fL (7.4-10.4); Monocytes # 0.9 10^3/uL (0.2-0.9); Monocytes % 7.6 %; Neutrophils # 9.33 10^3/uL (1.8-7.7); Neutrophils % 77.7 %; Nucleated Red Blood Cells % 0 %; Platelet Count 173 10^3/cmm (130-400); Red Blood Count 4.31 10^6/uL (4.1-5.3); Red Cell Distribution Width 12.4 % (12.1-15.1)
[2022-05-01 03:18] LABS: Anion Gap 12.8 (5-19); Blood Urea Nitrogen 8 mg/dL (6-20); Calcium 8.7 mg/dL (8.5-10.5); Carbon Dioxide 26 mmol/L (22-29); Chloride 99 mmol/L (98-107); Glucose 103 mg/dL (65-115); Osmolality Calculated 277 mOsm/kg (285-295); Potassium 3.8 mmol/L (3.5-5.1); Sodium 134 mmol/L (136-145)
[2022-05-01] MEDS: sodium chloride 0.9% 1,000 ML 100 ML IV ×2 (05:13→16:53)
--- NOTE | 2022-05-01 06:15 | PC.NURSE ---
Pt has been seen ambulating the halls at least 4 times tonight for a total of 900ft.
[2022-05-01] MEDS: magnesium citrate Btl 296 mL 150 ML PO ×2 (06:45→14:08)
[2022-05-01 08:33] VITALS: BP 124/75; PULSE 84; RESP 14; TEMP 36.6; O2SAT 95
[2022-05-01] MEDS: famotidine 20 mg/2 mL INJ IVP ×2 (08:43→21:46)
[2022-05-01] MEDS: psyllium powder Pkt 1 PACKET PO (08:43)
[2022-05-01 16:54] VITALS: RESP 18; O2SAT 98
[2022-05-01] MEDS: morphine 4 mg/mL SDV 1 mL 2 MG IVP ×2 (16:54→19:36)
--- NOTE | 2022-05-01 17:05 | PC.NURSE ---
tried suppository, too much pain. came back out
--- NOTE | 2022-05-01 18:21 | PM.PN ---
Subjective Subjective: Patient overall feels little bit bloated and he did pass gas yesterday only 1 time, trending down leukocytosis, adequate urine output, tolerating some clear liquid diet Vitals/I&O/Wt Last Vital Signs Temp 98 F 05/01/22 08:33 Pulse 84 05/01/22 08:33 Resp 18 05/01/22 16:54 BP 124/75 05/01/22 08:33 Pulse Ox 98 05/01/22 16:54 05/01/22 05/01/22 05/01/22 06:59 14:59 22:59 Intake Total 1360 / 3800 1000 / 1000 Output Total 0 / 2125 Balance 1360 / 1675 1000 / 1000 Weight last 48 hrs Weight 205 lb Physical Exam Narrative: Patient is conscious alert oriented X3 No apparent distress BMI 27 Head and neck examination PERRLA no masses no cervical lymphadenopathy no jaundice Abdomen nontender except at the incision site nondistended soft no organomegaly guarding or rigidity/no signs of peritonitis. Skin joyce in place, visions clean dry and intact Extremities no cyanosis no clubbing no edema Data : 05/01/22 02:20 05/01/22 02:20 A&P Assessment and plan (1) Acute appendicitis: Assessment 37 years old gent s/post laparoscopic appendectomy 04/29/2022 Plan Advance to full liquid diet slowly Continue Zosyn IV antibiotic Metamucil twice daily Encourage ambulation Assurance and education All questions have been answered and all concerns have been addressed to patient's satisfaction. 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
[2022-05-01 19:36] VITALS: RESP 20
[2022-05-01] MEDS: fluticasone nasal spray 16gm Btl 1 SPRAY NASAL (23:08)
[2022-05-02] MEDS: piperacillin-tazobactam 3.375 GM in sodium chloride 0.9% (plus) 50 ML IV ×3 (00:49→16:15)
[2022-05-02 03:06] LABS: Basophils % 0.3 %; Eosinophils % 0.3 %; Hematocrit 39.1 % (42.0-52.0); Hemoglobin 13.9 g/dL (11.7-16.6); Lymphocytes # 1.1 10^3/uL (0.8-4.8); Lymphocytes % 9.5 %; Mean Corpuscular HGB Conc 35.5 g/dL (30.0-36.0); Mean Corpuscular Hemoglobin 31.8 pg (28.0-34.0); Mean Corpuscular Volume 89.5 fl (80-94); Mean Platelet Volume 9.5 fL (7.4-10.4); Monocytes # 0.9 10^3/uL (0.2-0.9); Neutrophils # 9.47 10^3/uL (1.8-7.7); Neutrophils % 81.3 %; Nucleated Red Blood Cells % 0 %; Platelet Count 193 10^3/cmm (130-400); Red Blood Count 4.37 10^6/uL (4.1-5.3); Red Cell Distribution Width 12.2 % (12.1-15.1); White Blood Count 11.6 10^3/uL (4.0-10.0)
[2022-05-02 03:31] LABS: Anion Gap 10.7 (5-19); Blood Urea Nitrogen 11 mg/dL (6-20); Calcium 8.6 mg/dL (8.5-10.5); Carbon Dioxide 31 mmol/L (22-29); Chloride 96 mmol/L (98-107); Creatinine Clr Calc Pharmacy 152.2369; Glomerular Filtration Rate 108.8 mL/min (90-130); Glucose 119 mg/dL (65-115); Osmolality Calculated 279 mOsm/kg (285-295); Potassium 3.7 mmol/L (3.5-5.1); Sodium 134 mmol/L (136-145)
[2022-05-02] MEDS: sodium chloride 0.9% 1,000 ML 100 ML IV ×2 (03:38→12:05)
[2022-05-02 08:00] VITALS: BP 134/75; PULSE 78; RESP 16; TEMP 36.7; O2SAT 96
[2022-05-02] MEDS: metoclopramide 5 mg/mL SDV 2 mL 10 MG IVP ×2 (08:01→16:10)
[2022-05-02] MEDS: psyllium powder Pkt 1 PACKET PO ×2 (08:01→17:06)
[2022-05-02] MEDS: famotidine 20 mg/2 mL INJ IVP ×2 (08:01→21:08)
[2022-05-02] MEDS: fluticasone nasal spray 16gm Btl 1 SPRAY NASAL (08:02)
[2022-05-02 11:39] VITALS: BP 117/78; PULSE 77; RESP 16; TEMP 36.6; O2SAT 93
[2022-05-02 15:28] VITALS: BP 147/88; PULSE 86; RESP 15; TEMP 36.8; O2SAT 97
--- NOTE | 2022-05-02 17:12 | P.PN_ITS ---
Subjective Subjective: Patient overall feels bloated and is not passing a lot of gas. Continues to have adequate urine output and stable vital signs. Trending down of leukocytosis. Medications: Reviewed: Yes Vitals/I&O/Wt Last Vital Signs Temp 98.2 F 05/02/22 15:28 Pulse 86 05/02/22 15:28 Resp 15 05/02/22 15:28 BP 147/88 05/02/22 15:28 Pulse Ox 97 05/02/22 15:28 05/02/22 05/02/22 05/02/22 06:59 14:59 22:59 Intake Total 1490 / 2960 1015 / 1015 200 / 1215 Output Total 100 / 200 300 / 300 300 / 600 Balance 1390 / 2760 715 / 715 -100 / 615 Physical Exam Narrative: Patient is conscious alert oriented X3 No apparent distress BMI 27 Head and neck examination PERRLA no masses no cervical lymphadenopathy no jaundice Abdomen nontender except at the incision site mild distended soft no organomegaly guarding or rigidity/no signs of peritonitis. Skin joyce in place, visions clean dry and intact Extremities no cyanosis no clubbing no edema Data : 05/02/22 02:35 05/02/22 02:35 A&P Assessment and plan (1) Acute appendicitis: Assessment 37 years old gent s/post laparoscopic appendectomy 04/29/2022 Plan Will go back to clear liquid Continue Zosyn IV antibiotic Metamucil twice daily We will switch fluids to D5 one half normal normal saline +20 KCl Likely the patient will need 1 more night in the hospital as an in patient admission status instead of observation for awaiting bowel function Encourage ambulation We will be checking out to Dr. Barrientos as he will be taking over the weekend regarding patient's care Assurance and education All questions have been answered and all concerns have been addressed to patient's satisfaction. 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
[2022-05-02] MEDS: D5-NS 0.45% + KCL 20 mEq 20 MEQ/1,000 ML BAG 75 MEQ IV (17:26)
--- NOTE | 2022-05-02 17:32 | PC.NURSE ---
Patient AAOx4, VSS, OOBTC and ambulating in halls frequently. Patient hardly tolerating diet however is passing flatus now. Patients abdomen remains distended and discomfort/pain. Refusing pain medications d/t abdominal pain and discomfort and fear of further constipation. Patient voicing wanting to go home and wait for bowels function to return. Patient educated on plan of care. Room clean and clutter free with call light in reach. No safety events this shift, will report to oncoming nurse at shift change at bedside.
[2022-05-02 21:20] VITALS: BP 138/86; PULSE 82; RESP 18; TEMP 37.1; O2SAT 96
[2022-05-02] MEDS: simethicone 80 mg Chew PO (22:36)
[2022-05-03 00:15] VITALS: BP 137/81; PULSE 77; RESP 18; TEMP 36.9; O2SAT 96
[2022-05-03] MEDS: metoclopramide 5 mg/mL SDV 2 mL 10 MG IVP (00:40)
[2022-05-03] MEDS: piperacillin-tazobactam 3.375 GM in sodium chloride 0.9% (plus) 50 ML IV (01:07)
[2022-05-03 04:16] VITALS: BP 118/71; PULSE 84; RESP 18; TEMP 36.6; O2SAT 94
[2022-05-03] MEDS: simethicone 80 mg Chew PO (05:20)
[2022-05-03 07:52] VITALS: BP 137/84; PULSE 82; RESP 18; TEMP 36.7; O2SAT 98
[2022-05-03] MEDS: psyllium powder Pkt 1 PACKET PO (09:05)
[2022-05-03] MEDS: famotidine 20 mg/2 mL INJ IVP (09:06)
--- NOTE | 2022-05-03 09:13 | PM.DCS ---
Discharge Providers Date of Admission: 04/29/22 18:17 Date of Discharge: May 03, 2022 Attending Provider at Admission: Kevin Jacobs MD Attending Provider at Discharge: Kevin Jacobs MD Primary Care Provider: eDvante Miramontes Diagnoses at Discharge Discharge Diagnosis (1) Acute appendicitis: Status: Acute Qualifiers: Acute appendicitis type: with localized peritonitis Appendicitis abscess presence: without abscess Appendicitis gangrene presence: without gangrene Appendicitis perforation presence: without perforation Qualified Code(s): K35.30 - Acute appendicitis with localized peritonitis, without perforation or gangrene Reason for Visit Reason for Visit: abdomal pain in kidney area Brief History: Acute appendicitis Hospital Course Hospital Course This is a very pleasant 37-year-old gentleman who came in with abdominal pain. He was diagnosed with acute appendicitis and underwent a laparoscopic appendectomy. He was tolerating a diet and his pain was controlled upon discharge Physical Exam Narrative: General : Patient is well developed , no acute distress, oriented x3 Head : Normal cephalic, a-traumatic. Ears : Pinnae and external canal are normal. Hearing is normal. Eyes : PERRLA, Sclera and injection are normal. No conjunctival discharge. Nose : Mucous membranes are without erythema. Throat : buccal mucosa is normal, gums are without significant recession or hypertrophy. Lungs : Equal chest rise bilaterally, no use of accessory muscles, trachea is midline. Cor : Rate and rhythm are normal. Abdomen : Soft, mild distention, appropriately tender to palpation, no g/r/m Incisions intact without erythema or exudate Extremities : No edema, no cyanosis or clubbing, dorsalis pedis pulses are present bilaterally, non-tender to palpation of calves. Upper extremities are normal bilaterally. Back : non-tender to palpation, no CVA tenderness. Neuro : CN II - XII intact, Upper and lower extremities have equal and full strength Discharge Data Studies Completed and Pending Completed Studies During Hospitalization Category Date Time Status CT abdomen pelvis w con* [id number] Urgent Cat Scan 04/29/22 14:08 Completed Pathology: Surgical [PTH] Routine Pth 04/29/22 20:52 Completed Pending at discharge Category Date Time Status ES surgery / GI images Routine Exams 04/29/22 18:33 Taken Radiology Impressions Abdomen/Pelvis CT 04/29/22 14:08 IMPRESSION: 1. Acute appendicitis with numerous phleboliths and marked distention. Appendix measures up to 15 mm in diameter. 2. Appendix extends superiorly and extends between the inferior RIGHT lobe of the liver and the RIGHT kidney. 3. Small amount of free fluid in the pelvis. Laboratory Results WBC 11.6 10^3/uL (4.0-10.0) H 05/02/22 02:35 RBC 4.37 10^6/uL (4.1-5.3) 05/02/22 02:35 Hgb 13.9 g/dL (11.7-16.6) 05/02/22 02:35 Hct 39.1 % (42.0-52.0) L 05/02/22 02:35 MCV 89.5 fl (80-94) 05/02/22 02:35 MCH 31.8 pg (28.0-34.0) 05/02/22 02:35 MCHC 35.5 g/dL (30.0-36.0) 05/02/22 02:35 RDW 12.2 % (12.1-15.1) 05/02/22 02:35 Plt Count 193 10^3/cmm (130-400) 05/02/22 02:35 MPV 9.5 fL (7.4-10.4) 05/02/22 02:35 Neut % (Auto) 81.3 % 05/02/22 02:35 Lymph % (Auto) 9.5 % 05/02/22 02:35 [place] % (Auto) 8.0 % 05/02/22 02:35 Eos % (Auto) 0.3 % 05/02/22 02:35 Baso % (Auto) 0.3 % 05/02/22 02:35 Neut # (Auto) 9.47 10^3/uL (1.8-7.7) H 05/02/22 02:35 Lymph # (Auto) 1.1 10^3/uL (0.8-4.8) 05/02/22 02:35 [place] # (Auto) 0.9 10^3/uL (0.2-0.9) 05/02/22 02:35 Eos # (Auto) 0.0 10^3/uL (0.0-0.8) 05/02/22 02:35 Baso # (Auto) 0.0 10^3/uL (0.0-0.1) 05/02/22 02:35 Nucleated RBC % (auto) 0 % 05/02/22 02:35 Nucleated RBCs # 0.0 /100WBC 05/02/22 02:35 Sodium 134 mmol/L (136-145) L 05/02/22 02:35 Potassium 3.7 mmol/L (3.5-5.1) 05/02/22 02:35 Chloride 96 mmol/L (98-107) L 05/02/22 02:35 Carbon Dioxide 31 mmol/L (22-29) H 05/02/22 02:35 Anion Gap 10.7 (5-19) 05/02/22 02:35 BUN 11 mg/dL (6-20) 05/02/22 02:35 Creatinine 0.8 mg/dL (0.7-1.2) 05/02/22 02:35 GFR Calculation 108.8 mL/min (90-130) 05/02/22 02:35 Glucose 119 mg/dL (65-115) H 05/02/22 02:35 Calculated Osmolality 279 mOsm/kg (285-295) L 05/02/22 02:35 Calcium 8.6 mg/dL (8.5-10.5) 05/02/22 02:35 Total Bilirubin 0.4 mg/dL (0.15-1.2) 04/29/22 13:00 AST 17 U/L (0-40) 04/29/22 13:00 ALT 17 U/L (0-41) 04/29/22 13:00 Alkaline Phosphatase 82 IU/L (40-130) 04/29/22 13:00 Troponin T Baseline 6 ng/L (0-15) 04/29/22 Unknown Troponin T 120 Minute 6.00 ng/L (0-15) 04/29/22 15:47 Delta Troponin T 0 ABS# (0-10) 04/29/22 15:47 Total Protein 7.2 g/dL (6.6-8.7) 04/29/22 13:00 Albumin 4.4 g/dL (3.5-5.2) 04/29/22 13:00 Globulin 2.8 g/dL (1.3-4.6) 04/29/22 13:00 Lipase 16 U/L (13-60) 04/29/22 13:00 Urine Color Yellow (Yellow) 04/29/22 14:16 Urine Appearance Clear (CLEAR) 04/29/22 14:16 Urine pH 8 (5-7) H 04/29/22 14:16 Ur Specific [place] 1.010 (1.005-1.030) 04/29/22 14:16 Urine Protein Neg (Negative) 04/29/22 14:16 Urine Glucose (UA) Norm (Normal) 04/29/22 14:16 Urine Ketones 1+ (Negative) H 04/29/22 14:16 Urine Blood Neg (Negative) 04/29/22 14:16 Urine Nitrate Negative (Negative) 04/29/22 14:16 Urine Bilirubin 1+ (Negative) H 04/29/22 14:16 Prot Sulfosalicylic Acd Negative (Negative) 04/29/22 14:16 Urine Urobilinogen Norm mg/dL (Negative) 04/29/22 14:16 Ur Leukocyte Esterase Negative (Negative) 04/29/22 14:16 Procedures Performed Laparoscopic appendectomy Vitals Last Vital Signs Temp 98.0 F 05/03/22 07:52 Pulse 82 05/03/22 07:52 Resp 18 05/03/22 07:52 BP 137/84 05/03/22 07:52 Pulse Ox 98 05/03/22 07:52 Discharge Plan Discharge Patient Disposition: Home Condition: Stable Prescriptions: New hydrocodone-acetaminophen 5-325 mg Tablet 1 tab PO Q6H PRN (Reason: Moderate Pain) Qty: 20 0RF amoxicillin-pot clavulanate 875-125 mg tablet 1 tab PO Q12H Qty: 14 0RF Continued esomeprazole magnesium [Nexium] 40 mg capsule,delayed release(DR/EC) 40 mg PO DAILY Qty: 30 2RF Discharge Orders: Discharge Order (Routine); Ordered 05/03/22 Ordered By: Ramirez Barrientos Referrals: Kevin Jacobs MD [Physician] - 1 week Chente Miramontes MD [Primary Care Provider] - Discharge Diet: Advance as tolerated Discharge Activity: Resume usual activity Patient Instructions: Opioid Safety Activity Restrictions/Additional Instructions: Do not soak incisions underwater until joyce are removed. Shower daily. No lifting restrictions. Discharge Attestations Time Spent in Discharge Care*: less than 30 min Quality Metrics Clinical Quality Measures [ No reported AMI, CVA or VTE this stay] Coding Level of Care Code Acute Chg FW DC note Diagnoses Acute appendicitis K35.30 Acute appendicitis type: with localized peritonitis Appendicitis abscess presence: without abscess Appendicitis gangrene presence: without gangrene Appendicitis perforation presence: without perforation
[2022-05-03 10:25] VITALS: BP 137/84; PULSE 82; RESP 18; TEMP 36.7; O2SAT 98
== END 2022-05-03 10:26 | disposition home or self-care (01) ==
LOC: ER 16:52 → OPS 18:01 → MEDSURG 18:18
PROVIDERS: Physician Assistant; Admitting Provider Surgery; Emergency Provider Family Medicine; PCP Family Medicine; Visit Provider Surgery
PROC: 0DTJ4ZZ Resection of Appendix, Percutaneous Endoscopic Approach (ICD-10-PCS; CPT 44970; principal; 2022-04-29 18:00)
DX: K35.33 Acute appendicitis with perforation, localized peritonitis, and gangrene, with abscess (principal); K21.9 Gastro-esophageal reflux disease without esophagitis
CPT/HCPCS: 44970; 36415; 74177; 80048; 80053; 81003; 83690; 84484; 85025; 88304; 93005; 96361; 96365; 96367; 96375; 96376; 99285; G0378; J1100; J1170; J2250; J2270; J2405; J2543; J2704; J2710; J2765; J3010; J3490; J7030; Q9967